=== PATIENT | male | born 1935 | race Caucasian/White ===

== ENCOUNTER 2016-12-27 06:49 | Outpatient (CLI) | payer MEDICARE, BC | END 2016-12-27 23:59 | DX: E78.00 Pure hypercholesterolemia, unspecified (principal); E55.9 Vitamin D deficiency, unspecified; F02.80 Dementia in other diseases classified elsewhere, unspecified severity, without behavioral disturbance, psychotic disturbance, mood disturbance, and anxiety ==

== ENCOUNTER 2016-12-30 14:21 | Outpatient (CLI) | payer MEDICARE, BC | END 2016-12-30 14:22 | disposition home or self-care (01) | DX: E53.8 Deficiency of other specified B group vitamins (principal); F02.80 Dementia in other diseases classified elsewhere, unspecified severity, without behavioral disturbance, psychotic disturbance, mood disturbance, and anxiety; E78.00 Pure hypercholesterolemia, unspecified; E55.9 Vitamin D deficiency, unspecified ==

== ENCOUNTER 2017-03-12 15:38 | Outpatient (CLI) | payer MEDICARE, BC ==
--- NOTE | 2017-03-13 09:13 | XRAY Report ---
TWO-VIEW CHEST: 03/12/2017 CLINICAL INDICATION: Acute chest wall pain. FINDINGS: Frontal and lateral views of the chest demonstrate a normal cardiac silhouette. There is a right infrahilar mass, measuring approximately 5 cm, with a small right effusion present. No pneum othorax is seen. IMPRESSION: RIGHT INFRAHILAR MASS, WITH A SMALL RIGHT EFFUSION. THE APPEARANCE IS SUSPICIOUS FOR PU LMONARY MALIGNANCY. CHEST CT WITH CONTRAST IS RECOMMENDED FOR FURTHER EVALUATION. JOB #: [id number] EXT JOB #:[id number]
--- NOTE | 2017-03-13 09:14 | XRAY Report ---
LEFT RIBS: 03/12/2017 CLINICAL INDICATION: Chest wall pain. FINDINGS: Oblique views of the left ribs were obtained, with a marker at the site of maximal tendern ess. There is no evidence of a displaced rib fracture. No left pneumothorax is present. Please als o refer to chest x-ray of the same day. IMPRESSION: NO EVIDENCE OF DISPLACED LEFT RIB FRACTURE. 9:9:40 JOB #: [id number] EXT JOB #:[id number]
== END 2017-03-12 15:39 | disposition home or self-care (01) ==
LOC: DI 15:38
PROVIDERS: ATTEND Internal Medicine
DX: R91.8 Other nonspecific abnormal finding of lung field (principal); J90 Pleural effusion, not elsewhere classified
CPT/HCPCS: 71020

== ENCOUNTER 2017-03-28 13:45 | Emergency (ER) | payer MEDICARE, BC ==
[2017-03-28 15:36] LABS: ALBUMIN/GLOBULIN RATIO 0.8 (1.0-2.2); BILIRUBIN,TOTAL 0.4 mg/dL (0.2-1.0); CALCIUM 8.9 mg/dL (8.5-10.3); CREATININE 0.9 mg/dL (0.6-1.2); POTASSIUM 4.3 mmol/L (3.5-5.0)
[2017-03-28 16:17] LABS: BILIRUBIN,URINE NEGATIVE (NEGATIVE); PH,URINE 6.5 PH (5.0-7.5); UA CHARGE (STRIP ONLY) YES; UR CULTURE IF IND NOT INDICATED
[2017-03-28 16:29] LABS: BASOPHILS # (AUTO) 0.1 10^3/uL (0.0-0.1); BASOPHILS % (AUTO) 1.2 %; EOSINOPHILS # (AUTO) 0.2 10^3/uL (0.0-0.7); EOSINOPHILS % (AUTO) 2.1 %; HCT - HEMATOCRIT 35.1 % (42.0-52.0); HGB - HEMOGLOBIN 11.6 g/dL (14.0-18.0); LYMPHOCYTES # (AUTO) 1.4 10^3/uL (1.5-3.5); LYMPHOCYTES % (AUTO) 16.4 %; MEAN CORPUSCULAR HEMOGLOBIN 27.7 pg (27.0-31.0); MEAN CORPUSCULAR HGB CONC 32.9 g/dL (32.0-36.0); MEAN PLATELET VOLUME 8.4 fL (7.4-11.4); MONOCYTES # (AUTO) 0.7 10^3/uL (0.0-1.0); MONOCYTES % (AUTO) 8.5 %; NEUTROPHILS # (AUTO) 6.1 10^3/uL (1.5-6.6); NEUTROPHILS % (AUTO) 71.8 %; RED BLOOD COUNT 4.18 10^6/uL (4.70-6.10); RED CELL DISTRIBUTION WIDTH 15.3 % (12.0-15.0); UNCORRECTED WHITE BLOOD COUNT 8.5 x10^3/uL; WHITE BLOOD COUNT 8.5 x10^3/uL (4.8-10.8)
--- NOTE | 2017-03-28 16:52 | CT Preliminary Report ---
Exam: CT Abdomen/Pelvis W/ IMPRESSION: 1. Cluster of subcentimeter borderline enlarged left lower quadrant mesenteric lymph nodes with surro unding inflammatory stranding, likely reactive. 2. No bowel obstruction or inflammatory changes. 3. Atherosclerotic aorta. No aneurysm. 4. Cirrhosis. [facility] SITE ID: [id number]
--- NOTE | 2017-03-28 16:54 | CT Report ---
EXAM: CT ABDOMEN AND PELVIS EXAM DATE: 03/28/2017 04:22 PM. CLINICAL HISTORY: Left sided abdominal pain. COMPARISONS: None. TECHNIQUE: Routine helical CT imaging was performed through the abdomen and pelvis. IV contrast: 100 mL Isovue-300. Enteric contrast: No. Reconstructions: Coronal and sagittal. In accordance with CT protocol optimization, one or more of the following dose reduction techniques w ere utilized for this exam: automated exposure control, adjustment of mA and/or KV based on patient s ize, or use of iterative reconstructive technique. FINDINGS: Lung Bases: Masslike right lower lobe consolidation the full extent of which is not visualized. Trace right pleural effusion. Left lung base is clear. Liver: Nodular hepatic contours. No liver mass. Gallbladder/Bile Ducts: Unremarkable. Spleen: Normal. Pancreas: Normal. Adrenal Glands: Normal. Kidneys: Normal. No masses or hydronephrosis. Peritoneal Cavity/Bowel: No small bowel obstruction. No diverticulitis. No free air or fluid collecti ons. There is a cluster of left lower quadrant mesenteric lymph nodes measuring up to 10 mm with incr eased attenuation surrounding mesentery. The appendix is well visualized and normal. Pelvic Organs: Normal. The bladder and visualized pelvic organs are within normal limits. Vasculature: Atherosclerotic aortoiliac disease. No aneurysms. Bones: No acute bony abnormality. Other: None. IMPRESSION: 1. Cluster of subcentimeter borderline enlarged left lower quadrant mesenteric lymph nodes with surro unding inflammatory stranding, likely reactive. 2. No bowel obstruction or inflammatory changes. 3. Atherosclerotic aorta. No aneurysm. 4. Cirrhosis. [facility] Referring Provider Line: [phone] SITE ID: [id number]
--- NOTE | 2017-03-28 17:38 | ED Physician Documentation ---
PD HPI ABD PAIN - Stated complaint Stated Complaint: LEFT SIDE PX - Chief complaint Chief Complaint: Abd Pain - History obtained from History obtained from: Patient, Family (spouse) - History of Present Illness Timing - duration: Weeks (2) Timing - details: Waxing and waning Pain level now: 1 Quality: Aching Location: LLQ Associated symptoms: No: Fever, Nausea, Vomiting, Diarrhea, Dysuria Similar symptoms before: Has not had sx before - Treatment prior to arrival Treatment prior to arrival: Acetaminophen 500 mg. - Additional information Additional information: The patient is an 81-year-old male with a history of dementia and small cell carcinoma of the lung, who presents with left-sided abdominal pain that has been waxing and waning for the past 2 weeks. He denies fever, nausea, vomiting , or dysuria. He has been using acetaminophen occasionally which usually improves his symptoms. His became concerned today because acetaminophen did not seem to be relieving his discomfort. Past history is significant for small cell carcinoma. He continues to smoke cigarettes. He has chronic pedal edema, but recently slightly worse than usual. Review of Systems Constitutional: denies: Fever Nose: denies: Congestion Throat: denies: Sore throat Cardiac: denies: Chest pain / pressure Respiratory: reports: Cough (chronically). denies: Dyspnea GI: reports: Abdominal Pain. denies: Nausea, Vomiting : denies: Dysuria Skin: denies: Rash Musculoskeletal: reports: Extremity swelling (chronically). denies: Back pain Neurologic: denies: Focal weakness, Numbness, Headache PD PAST MEDICAL HISTORY - Past Medical History Past Medical History: Yes Respiratory: COPD, Other (Small cell carcinoma) Neuro: Dementia Endocrine/Autoimmune: None Other Past Medical History: small cell lung ca - Past Surgical History Past Surgical History: Yes Ortho: Hip replacement - Allergies Allergies/Adverse Reactions: Allergies Allergy/AdvReac Type Severity Reaction Status Date / Time No Known Drug Allergies Allergy Verified 03/29/17 13:46 - Living Situation Living Situation: reports: With spouse/s.o. Living Arrangement: reports: At home - Social History Does the pt smoke?: Yes Smoking Status: Current every day smoker - Immunizations Immunizations are current?: Yes PD ED PE NORMAL - Vitals Vital signs reviewed: Yes (Mild systolic hypertension initially.) - General General: Other (Alert, pleasant, elderly male who is confused, consistent with dementia.) - HEENT HEENT: Atraumatic, EOMI, Pharynx benign - Neck Neck: No adenopathy, No JVD - Cardiac Cardiac: RRR, No murmur - Respiratory Respiratory: Other (Loose sounding cough, consistent with COPD. Course rhonchi bilaterally.) - Abdomen Abdomen: Soft, Non tender, Other (Palpation of his abdomen does not reveal any tenderness at this time, and no abdominal mass is appreciated.) - Back Back: No CVA TTP - Derm Derm: No rash - Extremities Extremities: No tenderness to palpate, Other (2+ pedal edema bilaterally. There is also pitting edema of the left upper extremity (which his states is chronic).) - Neuro Neuro: No motor deficit, Normal speech, Other (Alert, oriented 2, general confusion, consistent with dementia.) Results - Vitals Vitals: Vital Signs - 24 hr 03/28/17 03/28/17 16:52 18:12 Heart Rate 94 91 Respiratory 18 16 Rate Blood Pressure 161/77 H 157/73 H O2 Saturation 99 97 Oxygen O2 Source Room air - EKG (time done) 15:08 Rate: Rate (enter#) (77) [place]: LAD Intervals: Prolonged [place] Ischemia: Q waves (Q'a in III and aVF, consistent with old inferior NC.) Computer interpretation: Agree with computer - Labs Labs: Laboratory Tests 03/28/17 03/28/17 03/28/17 15:10 15:10 15:10 WBC 8.5 RBC 4.18 L Hgb 11.6 L Hct 35.1 L MCV 84.0 MCH 27.7 MCHC 32.9 RDW 15.3 H Plt Count 274 MPV 8.4 Neut # 6.1 Lymph # 1.4 L [place] # 0.7 Eos # 0.2 Baso # 0.1 Absolute Nucleated RBC 0.00 Nucleated RBCs 0.0 Sodium 137 Potassium 4.3 Chloride 103 Carbon Dioxide 24 Anion Gap 10.0 BUN 15 Creatinine 0.9 Estimated GFR (MDRD) 81 L Glucose 94 Calcium 8.9 Total Bilirubin 0.4 AST 19 ALT 15 Alkaline Phosphatase 90 Troponin I < 0.04 Total Protein 7.0 Albumin 3.0 L Globulin 4.0 Albumin/Globulin Ratio 0.8 L Lipase 22 Urine Color Urine Clarity Urine pH Ur Specific [place] Urine Protein Urine Glucose (UA) Urine Ketones Urine Occult Blood Urine Nitrite Urine Bilirubin Urine Urobilinogen Ur Leukocyte Esterase Ur Microscopic Review Urine Culture Comments 03/28/17 15:30 WBC RBC Hgb Hct MCV MCH MCHC RDW Plt Count MPV Neut # Lymph # [place] # Eos # Baso # Absolute Nucleated RBC Nucleated RBCs Sodium Potassium Chloride Carbon Dioxide Anion Gap BUN Creatinine Estimated GFR (MDRD) Glucose Calcium Total Bilirubin AST ALT Alkaline Phosphatase Troponin I Total Protein Albumin Globulin Albumin/Globulin Ratio Lipase Urine Color YELLOW Urine Clarity CLEAR Urine pH 6.5 Ur Specific [place] 1.015 Urine Protein NEGATIVE Urine Glucose (UA) NEGATIVE Urine Ketones NEGATIVE Urine Occult Blood TRACE-INTA Urine Nitrite NEGATIVE Urine Bilirubin NEGATIVE Urine Urobilinogen 0.2 (NORMAL) Ur Leukocyte Esterase NEGATIVE Ur Microscopic Review NOT INDICATED Urine Culture Comments NOT INDICATED - Rads (name of study) CT abd/pelvis w/IV contrast Radiology: Prelim report reviewed, EMP read contemporaneously, See rad report ( Cluster of subcentimeter borderline enlarged left lower quadrant mesenteric lymph nodes with surrounding inflammatory stranding, likely reactive. No bowel obstruction or inflammatory changes. Atherosclerotic aorta. No aneurysm. Cirrhosis.) PD MEDICAL DECISION MAKING - ED course Complexity details: reviewed results, re-evaluated patient, considered differential, d/w patient, d/w family ED course: The underlying cause of the patient's intermittent left-sided abdominal pain is not clear at this time. His CBC reveals a normal white count of 8.5. His chemistry panel is unremarkable, and his urinalysis is negative. CT scan of the abdomen and pelvis reveals mildly enlarged mesenteric lymph nodes, but no evidence of diverticulitis or other cause identified to account for his symptoms. The patient remained asymptomatic while in the emergency department, and repeated examinations of his abdomen revealed no appreciable findings. I discussed with him and his the results of the workup, symptomatic treatment and outpatient follow-up, as well as potentially worrisome signs or symptoms that should prompt reevaluation in the emergency department. Departure - Departure Disposition: 01 Home, Self Care Clinical Impression: Abdominal pain Qualifiers: Abdominal location: unspecified location Qualified Code(s): R10.9 - Unspecified abdominal pain Condition: Stable Instructions: ED Abdominal Pain Unkn Cause Follow-Up: Richard Saeed MD [Primary Care Provider] - Comments: You can use acetaminophen, up to 500 mg 3 or 4 times daily if needed for discomfort. Drink plenty of fluids. Follow up with your primary physician within one week. Call to schedule an appointment. Return to the emergency department if you develop increasing abdominal pain, persistent vomiting, fever, or otherwise worsening symptoms. Discharge Date/Time: 03/28/17 18:20
[2017-03-28 18:13] VITALS: BP 157/73
[2017-03-29] MEDS: IOPAMIDOL-300 100 ML VIAL IVP ONE (00:04)
== END 2017-03-28 18:20 | disposition home or self-care (01) ==
LOC: ED 13:45
DX: R10.32 Left lower quadrant pain (principal); F03.90 Unspecified dementia, unspecified severity, without behavioral disturbance, psychotic disturbance, mood disturbance, and anxiety; Z85.118 Personal history of other malignant neoplasm of bronchus and lung; J44.9 Chronic obstructive pulmonary disease, unspecified; F17.200 Nicotine dependence, unspecified, uncomplicated
CPT/HCPCS: 36415; 74177; 80053; 81001; 81003; 83690; 84484; 85025; 87086; 93005; 93010; 99284

== ENCOUNTER 2017-03-29 12:21 | Outpatient (CLI) | payer MEDICARE, BC | END 2017-03-29 12:22 | disposition EMS.NT | LOC: EMS 12:21 | PROVIDERS: ATTEND Surgery | DX: R10.12 Left upper quadrant pain (principal) ==

== ENCOUNTER 2017-03-29 13:31 | Emergency (ER) | payer MEDICARE, BC ==
[2017-03-29 13:52] VITALS: BP 133/71
--- NOTE | 2017-03-29 14:31 | ED Physician Documentation ---
History of Present Illness - Stated complaint Stated Complaint: PAIN - Chief complaint Chief Complaint: General - History obtained from History obtained from: Patient, Family () - History of Present Illness Timing: Other (81-year-old with history of right-sided small cell lung cancer, DVT on Xarelto presents with 2 weeks of left chest wall pain that is constant and worse with twisting or motion of the left arm. There is no associated shortness of breath he does have a productive cough. No calf pain but he does have mild symmetric pedal edema. He was seen by his physician, rib x-rays were negative, seen here yesterday, abdominal CT labs were unremarkable except for potentially some reactive adenopathy. There was no recollected trauma but he is somewhat demented and the says we might not remember any falls.) Review of Systems Ten Systems: 10 systems reviewed and negative Constitutional: denies: Fever, Chills Throat: denies: Sore throat Cardiac: reports: Pedal edema. denies: Palpitations, Calf pain Respiratory: reports: Cough. denies: Dyspnea, Hemoptysis, Wheezing PD PAST MEDICAL HISTORY - Past Medical History Past Medical History: Yes Cardiovascular: Deep vein thrombosis Respiratory: Other (small cell lung cancer) - Past Surgical History Past Surgical History: Yes Ortho: Hip replacement - Present Medications Home Medications: Ambulatory Orders Medication Instructions Recorded Confirmed HYDROcod/ACETAM 5/325 [[place] 5/325] 1 - 2 ea PO Q6H PRN #15 tablet 03/29/17 Levofloxacin [Levaquin] 750 mg PO DAILY #7 tablet 03/29/17 - Allergies Allergies/Adverse Reactions: Allergies Allergy/AdvReac Type Severity Reaction Status Date / Time No Known Drug Allergies Allergy Verified 03/29/17 13:46 - Social History Does the pt smoke?: Yes Smoking Status: Current every day smoker Does the pt drink ETOH?: No Does the pt have substance abuse?: No - Family History Family history: reports: Non contributory - Immunizations Immunizations are current?: Yes PD ED PE NORMAL - Vitals Vital signs reviewed: Yes - General General: No acute distress, Other (A/O x2) - HEENT HEENT: PERRL, EOMI - Neck Neck: Supple, no meningeal sign, No bony TTP, No bruit - Cardiac Cardiac: RRR, No murmur - Respiratory Respiratory: No respiratory distress, Other (v rhonchorous) - Abdomen Abdomen: Soft, Non tender - Back Back: Other (TTP Left posterior low chest wall, pain with lifting arms and twisting) - Extremities Extremities: No edema, No calf tenderness / cord - Neuro Neuro: No motor deficit, No sensory deficit - Psych Psych: Normal mood, Normal affect Results - Vitals Vitals: Vital Signs - 24 hr 03/29/17 13:38 Temperature 36.1 C L Heart Rate 73 Respiratory 20 Rate Blood Pressure 133/71 H O2 Saturation 96 Oxygen O2 Source Room air - Rads (name of study) CT PA Radiology: EMP read contemporaneously (Right lower lobe pneumonia with small effusion and left seventh rib mass, multiple myeloma versus metastatic disease.) PD MEDICAL DECISION MAKING - ED course ED course: 81-year-old gentleman with ongoing left rib pain, previous x-rays negative. Now with evidence of either metastatic disease or multiple myeloma on CT as well as a pneumonia. Results were discussed with patient and family. He is very well-appearing and seems like he would be a good candidate for outpatient treatment for his pneumonia, and they are trying to get in with the oncology clinic. I also e-mailed Kian Guajardo to followup with him. 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 .Your blood pressure was elevated today on check in to the emergency department. This does not mean that you have hypertension, it is a common phenomenon to check into the emergency department and have elevated blood pressure. I recommend that you see your primary care physician within the week to have it rechecked when you're feeling better.
[2017-03-29] MEDS ORDERED: IOPAMIDOL-300 100 ML VIAL IVP ONE (16:16)
--- NOTE | 2017-03-29 16:55 | CT Report ---
EXAM: CT ANGIOGRAM CHEST EXAM DATE: 03/29/2017 04:16 PM. CLINICAL HISTORY: Left chest pain. COMPARISON: None. TECHNIQUE: Routine helical imaging was performed through the chest in the pulmonary arterial phase. I V Contrast: 100 cc of Isovue-300. Reconstructions: Coronal 3-D MIP reconstructions.Sagittal and coron al. In accordance with CT protocol optimization, one or more of the following dose reduction techniques w ere utilized for this exam: automated exposure control, adjustment of mA and/or KV based on patient s ize, or use of iterative reconstructive technique. FINDINGS: Pulmonary Arteries: Diagnostic quality: Adequate through the segmental arteries. No evidence for acute or chronic pulmona ry emboli. RV/LV is within normal limits. There is no interventricular septal bowing. There is no reflux of cont rast material in the IVC. Lungs/Pleura: Perihilar infiltrates on the right extending mostly into the lower lobe with tiny effus ion. On the left, mild basilar atelectasis/infiltrate. Mediastinum: Aortic and coronary artery calcification noted. No cardiac enlargement or adenopathy. Thoracic Aorta: Unremarkable. Upper Abdomen: Unremarkable. Other: There are 2 lytic expansile rib abnormalities involving the posterior lateral left seventh rib . IMPRESSION: 1. No pulmonary embolus. 2. Advanced atherosclerotic calcification with aortic plaquing. 3. No aortic aneurysm or dissection. 4. Right hilar infiltrate extending mostly into the lower lobe with tiny right pleural effusion. 5. 2 lytic expansile rib abnormalities involving the posterior lateral left seventh rib concerning fo r metastatic disease or multiple myeloma. [facility] Referring Provider Line: [phone] SITE ID: [id number]
[2017-03-29] MEDS ORDERED: levoFLOXacin 250 MG TABLET PO STA (16:59)
[2017-03-29] MEDS ORDERED: levoFLOXacin 250 MG TABLET ONE (17:02)
== END 2017-03-29 17:13 | disposition home or self-care (01) ==
LOC: ED 13:31
DX: J18.9 Pneumonia, unspecified organism (principal); F17.200 Nicotine dependence, unspecified, uncomplicated; C41.3 Malignant neoplasm of ribs, sternum and clavicle; R03.0 Elevated blood-pressure reading, without diagnosis of hypertension; Z79.01 Long term (current) use of anticoagulants; Z85.118 Personal history of other malignant neoplasm of bronchus and lung; Z86.718 Personal history of other venous thrombosis and embolism; Z96.641 Presence of right artificial hip joint
CPT/HCPCS: 71275; 99283; 99284; A9270; Q9967

== ENCOUNTER 2017-04-14 12:05 | Outpatient (CLI) | payer MEDICARE, BC | END 2017-04-14 12:06 | disposition EMS.NT | DX: R53.1 Weakness (principal); W18.39XA Other fall on same level, initial encounter; Y92.009 Unspecified place in unspecified non-institutional (private) residence as the place of occurrence of the external cause ==